=== PATIENT | female | born 1940 | race Caucasian/White ===

== ENCOUNTER 2017-03-08 09:48 | Emergency (ER) | payer OTHER, MEDICARE ==
[~2017-03-08] VITALS: Ht 152.4 cm; Wt 75.7 kg
[~2017-03-08 09:48] MED LIST: ASPIR-TRIN325 M1 PO; CELEBREX200 MG PO; FEOSOL325 MG PO; Omega III EPA + DHA PO; SENOKOT S,PE1 TABLET PO; SUDAFED30 MG PO; Vicodin,Lortab 5/500 PO; Vitamin B Complex PO; ZESTRIL,PRINIVI40 M1 PO
[2017-03-08] MEDS ORDERED: NIACIN50 MG PO (10:27)
[2017-03-08 11:09] VITALS: BP 162/90
== END 2017-03-08 11:09 | disposition home or self-care (01) ==
LOC: EME 09:48
DX: J06.9 Acute upper respiratory infection, unspecified (principal); I10 Essential (primary) hypertension; Z96.652 Presence of left artificial knee joint
CPT/HCPCS: 71020; 99281; 99284